=== PATIENT | female | born 2005 | race African-American/Black ===

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

== ENCOUNTER 2024-10-27 15:55 | Emergency (ER) | payer BC, SELFPAY ==
[2024-10-27 16:24] VITALS: BP 131/65; PULSE 91; RESP 18; TEMP 37; O2SAT 100
[2024-10-27 17:03] LABS: EDUAAPPEAR Clear; EDUABILI Negative (Negative); EDUABLOOD Negative (Negative); EDUACOLOR1 Yellow; EDUAGLUCOSE Negative (Negative); EDUAKETONE Negative (Negative); EDUALEUKO Negative (Negative); EDUANITRATE Negative (Negative); EDUAPROTEIN Negative (Negative); EDUASPGRAVITY 1.015; EDUAUROBILI 0.2
--- NOTE | 2024-10-27 17:35 | ED.FEMALEGU ---
HPI - Female Genitourinary General Chief complaint: Urogenital-Female Stated complaint: Urinary Problems Time Seen by Provider: 10/27/24 17:28 Source: patient and RN notes reviewed Mode of arrival: ambulatory Limitations: no limitations History of Present Illness HPI Narrative: Patient presents today complaining an intermittent dysuria and malodorous urine over the past couple of weeks. Denies any additional urinary symptoms or vaginal symptoms. She requests to be tested for gonorrhea, chlamydia, or Trichomonas. Related Data Home Medications ?Medication ?Instructions ?Recorded ?Confirmed ?Last Taken ?Type No Home Medications 10/27/24 10/27/24 Unknown History Allergies Allergy/AdvReac Type Severity Reaction Status Date / Time No Known Allergies Allergy Verified 10/27/24 16:21 Review of Systems Review of Systems: CONSTITUTIONAL: Denies body aches, fever, chills, or sweats. EYES: Denies visual changes, redness, or discharge. ENT: Denies rhinorrhea, congestion, sore throat, or otalgia. CARDIOVASCULAR: Denies chest pain, palpitations, or edema. RESPIRATORY: Denies cough or dyspnea. GASTROINTESTINAL: Denies abdominal pain, nausea, vomiting, or diarrhea. GENITOURINARY: + dysuria, malodorous urine SKIN: Denies rash, itching, or wounds. MUSCULOSKELETAL: Denies back pain, joint pain, or myalgia. NEUROLOGIC: Denies headache, numbness, tingling, or weakness. PSYCH: Denies depression or anxiety. [facility] Past Medical History Medical History Seasonal allergies Surgical History Surgical History No history of previous surgery Family History Family History Grandparent Diabetes mellitus Hypertension Social History Social History Smoking status: Never smoker Alcohol intake: never Substance use: never Living arrangements: with family Occupation/Education: student Gender identity (if verbalized by the patient): Female Comments At time of signature, I have reviewed and agree with nursing past medical, surgical, social and family history unless otherwise noted. Please see nursing chart for further information. There is no relevant family history pertinent to the presenting complaint Exam Narrative: GENERAL: Well-appearing, well-nourished, and in no acute distress. HEAD: Normocephalic, atraumatic. EYES: EOMI. No redness or drainage. Conjunctivae normal. ENT: Mucous membranes pink and moist. NECK: Normal AROM. CHEST: No respiratory distress. EXTREMITIES: Normal range of motion. No edema. SKIN: Warm, dry, no rash. Capillary refill normal. Normal skin turgor. NEURO: No focal deficits. Alert and oriented x3. Gait steady. PSYCH: Normal affect. No signs of depression or anxiety. Course Course Level of Care: Express Care Visit Vital Signs Vital signs: Vital Signs Temperature 98.6 F 10/27/24 16:24 Pulse Rate 91 10/27/24 16:24 Respiratory Rate 18 10/27/24 16:24 Blood Pressure 131/65 10/27/24 16:24 Pulse Oximetry 100 10/27/24 16:24 Oxygen Delivery Room Air 10/27/24 16:24 Temperature 98.6 F 10/27/24 16:24 Pulse Rate 91 10/27/24 16:24 Respiratory Rate 18 10/27/24 16:24 Blood Pressure 131/65 10/27/24 16:24 Pulse Oximetry 100 10/27/24 16:24 Oxygen Delivery Room Air 10/27/24 16:24 Reviewed MDM - Female Genitourinary MDM Narrative Medical decision making narrative: Urinalysis is not consistent with infection. Patient requested have urine sent for STD him that occasion, even though she has low suspicion. She does not wish to be started on prophylactic antibiotics at this time. Differential Diagnosis Differential diagnosis: Likely urinary tract infection, vaginitis and cystitis Lab Data Attestation: I reviewed the patient's lab results. Labs: Lab Results 10/27/24 Range/Units 16:59 POC Urine Color Yellow POC Urine Clarity Clear POC Urine pH 7.0 POC Ur Specif [place] 1.015 POC Urine Protein Negative (Negative) POC Ur Glucose (UA) Negative (Negative) POC Urine Ketones Negative (Negative) POC Urine Blood Negative (Negative) POC Urine Nitrite Negative (Negative) POC Urine Bilirubin Negative (Negative) POC Urine Urobilinogen 0.2 POC U Leukocyte Esteras Negative (Negative) Critical Care Time Critical Care Time Critical Care Time: No Discharge Plan Discharge Clinical Impression: Dysuria Patient Disposition: Home, Self-Care Condition: Stable Instructions: Dysuria (ED) Additional Instructions: Your urinalysis is negative for infection. Your urine will be sent to the hospital for evaluation for gonorrhea, chlamydia, and Trichomonas, and you will be notified of any positive results. If your urine symptoms persist, please follow-up with your PCP or urologist for further evaluation. Your blood pressure was elevated above 120/80 today at Urgent Care. This puts you above the threshold for follow up. Please schedule a followup visit with your personal physician as soon as possible, for further evaluation and treatment. Even blood pressure exceeding 120/80 may indicate pre-hypertension. Patient Language: [place]i Prescriptions: No Action No Home Medications Follow-up/Referrals: PHYSICIAN,E[facility] BLOWER [Primary Care Provider] - Time of Disposition: 17:43
[2024-10-28 15:34] LABS: Trichomonas Vag PCR NOT DETECTED (NOT DETECTE)
[2024-10-28 15:57] LABS: Chlamydia trachomatis NOT DETECTED (NOT DETECTE); Neisseria gonorrhoeae PCR NOT DETECTED (NOT DETECTE)
== END 2024-10-27 17:29 | disposition home or self-care (01) ==
PROVIDERS: Emergency Provider Nurse Practitioner
DX: R30.0 Dysuria (principal); Z11.3 Encounter for screening for infections with a predominantly sexual mode of transmission
CPT/HCPCS: 81003; 87491; 87591; 87661; 99213; G0463